=== PATIENT | female | born 1940 | race Caucasian/White ===

== ENCOUNTER 2016-11-28 12:46 | Observation (INO) | payer OTHER, MEDICARE ==
[~2016-11-28] VITALS: Ht 167.6 cm; Wt 106.3 kg
[~2016-11-28 12:46] MED LIST: ALEVE220 MG PO; ASPIR 8181 M1 PO; CARDIZEM60 MG PO; Ecotrin PO; LATANOPROST2.5 ML BOTH EYES; LIPITOR40 MG PO; LOPRESSOR25 MG PO; Lipitor PO; METOPROLOL SUCC50 MG PO; NITROSTAT0.4 MG SL; PLAVIX75 MG PO; PREVACID30 MG PO; PRILOSEC20 MG PO; ROXICODONE5 MG PO; TOPROL; TOPROL XL25 MG PO; TOPROL XL6.25 MG PO; TYLENOL EXTRA500 MG PO; XARELTO20 MG PO; ZESTRIL10 MG PO
[2016-11-28] MEDS ORDERED: TOPROL XL25 MG PO (13:22)
[2016-11-28] MEDS ORDERED: FLECAINIDE ACET50 MG PO (13:23)
[2016-11-28 13:41] LABS: EOSINOPHIL (%) 0.3 % (0-5); HEMATOCRIT 37.9 % (36.0-46.0); IMMATURE GRANULOCYTE (%) 0.5 % (0.0-0.7); INSTRUMENT ABS NEUTROPHIL CT 6.4 K/uL; LYMPHOCYTE COUNT 1.9 K/uL (1.0-2.8); MCH 22.5 PG (29.0-34.0); MCHC 29.3 G/DL (30.0-36.0); MCV 76.9 FL (83-99); MEAN PLAT.VOLUME 9.9 uM^3 (9.5-12.4); MONOCYTE COUNT 0.4 K/uL (0-0.8); NEUTROPHIL (%) 73.3 % (45-76); NEUTROPHIL COUNT 6.4 K/uL (1.8-6.4); PLATELET COUNT 227 K/uL (156-360); RBC DIS.WIDTH-SD 46.8 % (39-53); RED BLOOD COUNT 4.93 M/uL (3.80-5.20); WHITE BLOOD COUNT 8.7 K/uL (4.1-10.2)
[2016-11-28 13:50] LABS: CHLORIDE 103 mEq/L (99-109); INTER. NORMALIZED RATIO 1.1; POTASSIUM 4.5 mEq/L (3.7-5.4); PROTHROMBIN TIME 11.6 (9.2-11.2); PTT 28.4 (25-32); SODIUM 135 mEq/L (136-147)
[2016-11-28 13:51] LABS: MAGNESIUM 1.9 mg/dL (1.3-2.7)
[2016-11-28 13:52] LABS: GLUCOSE 183 mg/dL (70-99)
[2016-11-28 13:54] LABS: ANION GAP 9 MEQ/L (2-14)
[2016-11-28 13:56] LABS: GFR ESTIMATE (CALCULATED) 57 mL/min/
[2016-11-28 13:57] LABS: UREA NITROGEN (BUN) 13 mg/dL (9-23)
[2016-11-28 14:03] LABS: TROP-I INTERPRETATION NEGATIVE; TROPONIN-I 0.03 ng/mL (0.0-0.30)
[2016-11-28] MEDS ORDERED: LISINOPRIL10 MG PO (15:21)
[2016-11-28] MEDS ORDERED: TRAMADOL HCL50 MG PO (15:21)
[2016-11-28 16:05] LABS: ADD MIUA? YES; BILIRUBIN NEGATIVE; BLOOD NEGATIVE; COLOR YELLOW ((YELLOW)); GLUCOSE (STRIP) NEGATIVE; KETONES NEGATIVE; LEUKOCYTES LARGE; NITRITE NEGATIVE; PROTEIN (STRIP) 30; SPECIFIC GRAVITY 1.021 (1.000-1.030); UROBILINOGEN 0.2 MG/DL (0.2-1.0)
[2016-11-28 16:14] LABS: BACTERIA RARE /HPF; EPITHELIAL CELLS 1+ /HPF; MUCUS 1+ /LPF; UCUL ADDED? NO
[2016-11-28 17:13] VITALS: BP 121/57
[2016-11-28 17:24] VITALS: BP 121/57
[2016-11-28 18:05] LABS: TROP-I INTERPRETATION NEGATIVE; TROPONIN-I 0.24 ng/mL (0.0-0.30)
[2016-11-28 20:20] VITALS: BP 127/55
[2016-11-28 23:51] VITALS: BP 111/52
[2016-11-29 01:33] LABS: TROP-I INTERPRETATION INDETERMINATE; TROPONIN-I 0.53 ng/mL (0.0-0.30)
[2016-11-29 04:37] VITALS: BP 127/63
[2016-11-29 06:04] LABS: HEMATOCRIT 31.2 % (36.0-46.0); MCH 23.3 PG (29.0-34.0); MCHC 29.8 G/DL (30.0-36.0); RBC DIS.WIDTH-CV 17.1 % (11.8-14.6); RBC DIS.WIDTH-SD 48.5 % (39-53); WHITE BLOOD COUNT 7.3 K/uL (4.1-10.2)
[2016-11-29 07:10] VITALS: BP 135/60
[2016-11-29 07:31] LABS: MEAN PLAT.VOLUME 9.8 uM^3 (9.5-12.4); PLAT.SUFFICIENCY ADEQUATE
[2016-11-29 07:53] LABS: ALKALINE PHOSPHATASE 65 IU/L (3-129); ANION GAP 8 MEQ/L (2-14); CHLORIDE 106 MEQ/L (99-109); GFR ESTIMATE (CALCULATED) > 59 mL/min/; POTASSIUM 4.2 MEQ/L (3.7-5.4); SAMPLE HEMOLYSIS CHECK 0; SAMPLE ICTERIC CHECK 0; SAMPLE LIPEMIA CHECK 0; SODIUM 141 MEQ/L (136-147); TOTAL BILIRUBIN 0.8 MG/DL (0.0-1.0); UREA NITROGEN (BUN) 10 mg/dL (9-23)
[2016-11-29 07:55] LABS: GLUCOSE 112 mg/dL (70-99)
[2016-11-29 08:02] LABS: PLATELET COUNT 151 K/uL (156-360)
[2016-11-29 10:43] LABS: TROP-I INTERPRETATION INDETERMINATE; TROPONIN-I 0.37 ng/mL (0.0-0.30)
[2016-11-29 11:40] VITALS: BP 122/55
== END 2016-11-29 15:13 | disposition home or self-care (01) ==
LOC: EME 12:46 → 4EAST 15:39 → EDOF 15:39 → 4EAST 16:49
PROVIDERS: Emergency Medicine; Internal Medicine
DX: I48.0 Paroxysmal atrial fibrillation (principal); I10 Essential (primary) hypertension; I25.2 Old myocardial infarction; K21.9 Gastro-esophageal reflux disease without esophagitis; Z86.73 Personal history of transient ischemic attack (TIA), and cerebral infarction without residual deficits; Z79.01 Long term (current) use of anticoagulants; Z79.82 Long term (current) use of aspirin; I73.9 Peripheral vascular disease, unspecified; I25.10 Atherosclerotic heart disease of native coronary artery without angina pectoris; E11.9 Type 2 diabetes mellitus without complications; Z85.43 Personal history of malignant neoplasm of ovary; E78.5 Hyperlipidemia, unspecified; I35.0 Nonrheumatic aortic (valve) stenosis; Z95.5 Presence of coronary angioplasty implant and graft; Z68.38 Body mass index [BMI] 38.0-38.9, adult; E66.9 Obesity, unspecified; I47.1 Supraventricular tachycardia; I95.9 Hypotension, unspecified
CPT/HCPCS: 71010; 80048; 80053; 81003; 83735; 84484; 85025; 85027; 85610; 85730; 93005; 99281; 99285; G0378; J2405; J7030; J7050

== ENCOUNTER 2017-10-23 23:28 | Inpatient (IN) | payer OTHER ==
[~2017-10-23] VITALS: Ht 167.6 cm; Wt 99.9 kg
[~2017-10-23 23:28] MED LIST changes: +FLECAINIDE ACET50 MG PO; +LISINOPRIL10 MG PO; +TRAMADOL HCL50 MG PO
[2017-10-23 23:55] LABS: BASOPHIL (%) 0.3 % (0-1); EOSINOPHIL (%) 1.6 % (0-5); EOSINOPHIL COUNT 0.2 K/uL (0-0.3); HEMATOCRIT 37.3 % (36.0-46.0); HEMOGLOBIN 11.3 G/DL (11.9-15.5); IMMATURE GRANULOCYTE (%) 0.2 % (0.0-0.7); LYMPHOCYTE (%) 30.8 % (15-42); LYMPHOCYTE COUNT 2.9 K/uL (1.0-2.8); MCH 23.5 PG (29.0-34.0); MCHC 30.3 G/DL (30.0-36.0); MCV 77.7 FL (83-99); MONOCYTE COUNT 0.6 K/uL (0-0.8); NEUTROPHIL (%) 61.1 % (45-76); NEUTROPHIL COUNT 5.8 K/uL (1.8-6.4); PLATELET COUNT 232 K/uL (156-360); RBC DIS.WIDTH-CV 16.4 % (11.8-14.6); RBC DIS.WIDTH-SD 46.6 % (39-53); WHITE BLOOD COUNT 9.5 K/uL (4.1-10.2)
[2017-10-24 00:02] LABS: INTER. NORMALIZED RATIO 1.8
[2017-10-24 00:05] LABS: PTT 36.1 SEC (25-37)
[2017-10-24 00:12] LABS: ALBUMIN 4.2 g/dL (3.2-4.8); CHLORIDE 100 mEq/L (99-109); SODIUM 138 mEq/L (136-147)
[2017-10-24 00:13] LABS: MAGNESIUM 2.2 mg/dL (1.3-2.7)
[2017-10-24 00:15] LABS: GLUCOSE 148 mg/dL (70-99); TOTAL PROTEIN 7.5 g/dL (6.4-8.3)
[2017-10-24 00:17] LABS: TOTAL BILIRUBIN 0.7 mg/dL (0.0-1.0)
[2017-10-24 00:18] LABS: ALKALINE PHOSPHATASE 90 IU/L (3-129)
[2017-10-24 00:19] LABS: GFR ESTIMATE (CALCULATED) 57 mL/min/
[2017-10-24 00:20] LABS: AST (GOT) 12 IU/L (2-34); UREA NITROGEN (BUN) 12 mg/dL (9-23)
[2017-10-24 00:21] LABS: TROP-I INTERPRETATION NEGATIVE; TROPONIN-I < 0.01 ng/mL (0.0-0.30)
[2017-10-24 00:22] LABS: ALT (GPT) 8 IU/L (3-49)
[2017-10-24 03:45] VITALS: BP 138/70
[2017-10-24 06:03] LABS: TROP-I INTERPRETATION NEGATIVE; TROPONIN-I < 0.01 ng/mL (0.0-0.30)
[2017-10-24 08:35] VITALS: BP 123/70
[2017-10-24] MEDS ORDERED: ZOLOFT50 MG PO (08:54)
[2017-10-24 11:41] VITALS: BP 133/81
[2017-10-24 13:16] LABS: TROP-I INTERPRETATION NEGATIVE; TROPONIN-I < 0.01 ng/mL (0.0-0.30)
[2017-10-24 15:22] VITALS: BP 109/66
[2017-10-24 19:40] VITALS: BP 110/64
[2017-10-25 00:13] VITALS: BP 123/76
[2017-10-25 04:51] VITALS: BP 111/67
[2017-10-25 05:20] LABS: HEMATOCRIT 37.9 % (36.0-46.0); HEMOGLOBIN 11.2 G/DL (11.9-15.5); MCH 22.7 PG (29.0-34.0); MCHC 29.6 G/DL (30.0-36.0); MCV 76.7 FL (83-99); PLATELET COUNT 246 K/uL (156-360); RBC DIS.WIDTH-CV 16.7 % (11.8-14.6); RBC DIS.WIDTH-SD 45.9 % (39-53); RED BLOOD COUNT 4.94 M/uL (3.80-5.20); WHITE BLOOD COUNT 8.2 K/uL (4.1-10.2)
[2017-10-25 05:49] LABS: ALBUMIN 3.8 G/DL (3.2-4.8); ALKALINE PHOSPHATASE 70 IU/L (3-129); ALT (GPT) 7 IU/L (3-49); AST (GOT) 25 IU/L (2-34); CHLORIDE 102 MEQ/L (99-109); CREATININE 0.8 MG/DL (0.6-1.3); GFR ESTIMATE (CALCULATED) > 59 mL/min/; GLUCOSE 121 mg/dL (70-99); POTASSIUM 4.8 MEQ/L (3.7-5.4); SODIUM 136 MEQ/L (136-147); TOTAL BILIRUBIN 0.9 MG/DL (0.0-1.0); TOTAL PROTEIN 7.2 G/DL (6.4-8.3); UREA NITROGEN (BUN) 14 mg/dL (9-23)
[2017-10-25 11:04] VITALS: BP 120/58
[2017-10-25 15:47] VITALS: BP 124/77
[2017-10-25 19:44] VITALS: BP 128/71
[2017-10-25 23:08] VITALS: BP 101/62
[2017-10-26 03:51] VITALS: BP 101/56
[2017-10-26 08:45] VITALS: BP 115/73
[2017-10-26 11:32] VITALS: BP 115/64
[2017-10-26] MEDS ORDERED: TAMBOCOR50 MG PO (14:23)
== END 2017-10-26 14:59 | disposition home or self-care (01) | DRG 309 ==
LOC: EME → EDBD 23:28 → EDOF 10-24 02:33 → 4EAST 10-24 02:33 → ENRESERV 10-24 02:34 → 4EAST 10-24 03:48
PROVIDERS: Emergency Medicine; Hospitalist
PROC: 5A2204Z Restoration of Cardiac Rhythm, Single (ICD-10-PCS; principal; 2017-10-26)
DX: I48.0 Paroxysmal atrial fibrillation (principal); F33.9 Major depressive disorder, recurrent, unspecified; I35.0 Nonrheumatic aortic (valve) stenosis; K21.9 Gastro-esophageal reflux disease without esophagitis; I25.10 Atherosclerotic heart disease of native coronary artery without angina pectoris; E11.51 Type 2 diabetes mellitus with diabetic peripheral angiopathy without gangrene; E78.5 Hyperlipidemia, unspecified; H40.9 Unspecified glaucoma; I11.9 Hypertensive heart disease without heart failure; I65.21 Occlusion and stenosis of right carotid artery; Z60.2 Problems related to living alone; I73.9 Peripheral vascular disease, unspecified; Z79.82 Long term (current) use of aspirin; Z95.5 Presence of coronary angioplasty implant and graft; Z90.710 Acquired absence of both cervix and uterus; Z90.49 Acquired absence of other specified parts of digestive tract; Z86.73 Personal history of transient ischemic attack (TIA), and cerebral infarction without residual deficits; Z85.43 Personal history of malignant neoplasm of ovary; Z79.01 Long term (current) use of anticoagulants; Z82.49 Family history of ischemic heart disease and other diseases of the circulatory system; Z80.6 Family history of leukemia
CPT/HCPCS: 71045; 80053; 83735; 83880; 84484; 85025; 85027; 85610; 85730; 93005; 93306; 99281; 99285; J1160; J2405

== ENCOUNTER 2017-11-09 08:51 | Day surgery (SDC) | payer OTHER ==
[~2017-11-09] VITALS: Ht 167.6 cm; Wt 99.8 kg
[~2017-11-09 08:51] MED LIST changes: +AMIODARONE HCL200 MG PO; +TAMBOCOR50 MG PO; +ZOLOFT50 MG PO
== END 2017-11-09 17:02 | disposition home or self-care (01) ==
LOC: CATH 08:51
PROVIDERS: Internal Medicine Interventional Cardiology
PROC: B2111ZZ Fluoroscopy of Multiple Coronary Arteries using Low Osmolar Contrast (ICD-10-PCS; principal; 2017-11-09)
PROC: B2151ZZ Fluoroscopy of Left Heart using Low Osmolar Contrast (ICD-10-PCS; principal; 2017-11-09)
PROC: 4A023N8 Measurement of Cardiac Sampling and Pressure, Bilateral, Percutaneous Approach (ICD-10-PCS; principal; 2017-11-09)
DX: I35.0 Nonrheumatic aortic (valve) stenosis (principal); I25.10 Atherosclerotic heart disease of native coronary artery without angina pectoris; I27.20 Pulmonary hypertension, unspecified; I48.91 Unspecified atrial fibrillation; E78.5 Hyperlipidemia, unspecified; Z79.82 Long term (current) use of aspirin; Z82.49 Family history of ischemic heart disease and other diseases of the circulatory system
CPT/HCPCS: 82948; C1769; C1788; C1887; C1894; J1644; J2250; J3010; J7040